=== PATIENT | female | born 1965 | race Caucasian/White ===

== ENCOUNTER → 2017-10-24 | Outpatient (CLI) | payer OTHER ==
[~2017-10-24] MED LIST: HYDR-4309 PO; IBUP800T37 PO; ONDA4TAB PO; OXYC-865 PO
--- NOTE | 2017-10-24 10:03 | RADIOLOGY IMAGING REPORT ---
FACILITY: [facility] [place] PATIENT NAME: Genevieve Burleson : 1965 MR: [id number] V: [id number] EXAM DATE: ORDERING PHYSICIAN: DEBBY COVARRUBIAS TECHNOLOGIST: Location: [facility] Patient: Genevieve Burleson : 1965 Visit/Account:[id number] Date of Sevice: 10/24/2017 Ultrasound abdomen limited: History: Right upper quadrant pain COMPARISON STUDIES: None FINDINGS: Gallbladder: Gallbladder is normal. There is no cholelithiasis or pericholecystic fluid. Gallbladde r wall thickness is normal. Positive sonographic Castillo sign is present. Liver: Liver is normal. There is no mass or intrahepatic ductal dilatation. Portal vein is patent. Surface of the liver is smooth Common duct: normal 4-5 mm. Pancreas: Normal Right kidney: 9.0 x 3.6 x 4.5 cm. Cortical thickness and echogenicity is normal. Upper abdominal aorta and IVC: Patent Ascites: none IMPRESSION: 1. No cholelithiasis. There is however a positive sonographic Castillo sign of uncertain clinical sig nificance. If there is concern for acalculous cholecystitis, HIDA scan could be considered. 2. Remainder of the examination is normal. Report Dictated By: Farhana Tillman MD at 10/24/2017 9:57 AM Report E-Signed By: Farhana Tillman MD at 10/24/2017 9:59 AM WSN:[id number]
== END ==
LOC: US 08:56
PROVIDERS: ATTEND Nurse Practitioner Family
DX: R19.8 Other specified symptoms and signs involving the digestive system and abdomen (principal)
CPT/HCPCS: 76705

== ENCOUNTER 2017-12-28 16:21 | Emergency (ER) | payer OTHER ==
[2017-12-28 16:25] VITALS: BP 139/74
--- NOTE | 2017-12-28 16:28 | ER Report ---
History and Physical Time Seen By MD: 16:28 HPI/ROS CHIEF COMPLAINT: Laceration HISTORY OF PRESENT ILLNESS: This is a 52-year-old female who presents to the emergency department for a laceration/puncture wound to the hamstring area of the left leg. Patient states that about an hour ago she slipped off the tailgate of the truck the left leg slid down the tailgate's and she snagged the hamstring area of her left thigh on the 2 pieces of the closure device on the tailgate that penetrated the skin and lacerated the back of the leg. Patient has significant pain to the left upper posterior leg into the left buttock. Bleeding is controlled. Patient also states she did hit her left shoulder she however thinks this is just a bruise and does not feel that an x-ray is warranted at this time. Patient has no other complaints, no nausea, vomiting, diarrhea, aches, chills. Patient also denies hitting her head. REVIEW OF SYSTEMS: Respiratory: No cough, no dyspnea. Cardiovascular: No chest pain, no palpitations. Gastrointestinal: No vomiting, no abdominal pain. Musculoskeletal: No back pain. Integument: As above. Allergies: Coded Allergies: No Known Drug Allergies (Unverified , 12/28/17) Home Meds Active Scripts Cephalexin 500 Mg Tab (KEFLEX 500 MG TAB) 500 Mg Tablet, 500 MG PO BID, #18 TAB 0 Refills Prov:WARD POWERS FILAMENT SHAPER- 12/28/17 Discontinued Scripts Ondansetron (ZOFRAN ODT) 4 Mg Tab.rapdis, 4 MG PO Q6H Y for NAUSEA/VOMITING, # 10 TAB.ILYA Prov:DEREJE TORRES PA-C 04/21/17 Hydrocodone Bit/Acetaminophen (NORCO 5-325 TABLET) 1 Each Tablet, 1 EACH PO Q4- 6H Y for PAIN, #10 TAB Prov:DEREJE TORRES PA-C 04/21/17 Oxycodone Hcl/Acetaminophen (PERCOCET 5-325 MG TABLET) 1 Each Tablet, 1-2 TAB PO Q4H Y for pain, #20 TAB 0 Refills Prov:NICKIE BYNUM MD 08/24/16 Ibuprofen (IBUPROFEN) 800 Mg Tablet, 1 TAB PO Q8H Y for pain, #30 TAB 0 Refills TAKE WITH FOOD EVERY 8 HOURS Prov:NICKIE BYNUM MD 08/24/16 Past Medical/Surgical History She has a past medical and cervical history of migraines, GERD, gallbladder issues, obturator tape procedure. Reviewed Nurses Notes: Yes Hx Smoking: No Smoking Status: Never Smoker Hx Substance Use Disorder: No Hx Alcohol Use: Yes Constitutional Vital Sign - Last 24 Hours 12/28/17 16:25 Temp 98.0 Pulse 70 Resp 14 B/P (MAP) 139/74 Pulse Ox 96 O2 Delivery Room Air Physical Exam General Appearance: The patient is alert, has no immediate need for airway protection and no current signs of toxicity. Eyes: Pupils equal and round no injection. Respiratory: Chest is non tender, lungs are clear to auscultation. Cardiac: regular rate and rhythm. Gastrointestinal: Abdomen is soft and non tender, no masses, bowel sounds normal. Musculoskeletal: Neck: Neck is supple and non tender. Extremities pain to left upper posterior leg, no crepitus or obvious deformity. Skin: Large laceration, abrasions and puncture wound to the left posterior leg, adipose tissue showing. Developing contusion. Bleeding controlled, no obvious FB noted. DIFFERENTIAL DIAGNOSIS: After history and physical exam differential diagnosis was considered for laceration, puncture wound and contusion. Medical Decision Making EKG/Imaging Imaging Location: [facility] Patient: Genevieve Burleson : 1965 Visit/Account:[id number] Date of Sevice: 12/28/2017 Left femur Indication: Scrape on the posterior proximal part of the left thigh after fall. Evaluate for foreign body. Comparison: None available Findings: 2 views of the left femur show no evidence of fracture, dislocation, or acute osseous abnormality of the left. No periosteal abnormality or bony lesions. There is no focal soft tissue abnormality. No evidence of radiopaque foreign body. IMPRESSION: 1. No acute osseous abnormality left femur. No radiopaque foreign body. Report Dictated By: Dimitris Puckett at 12/28/2017 5:04 PM Report E-Signed By: Dimitris Puckett at 12/28/2017 5:10 PM WSN:[id number] ED Course/Re-evaluation ED Course The patient was admitted to a room. A history and physical were obtained. Differential diagnoses were considered. An x-ray of the left upper leg was obtained no foreign body identified. The wound was irrigated and scrubbed as noted below. The wound was extensive and it was very challenging to anesthetized. the area surrounding the wound was very painful even with light pressure. Pain extending from the left posterior leg even up into the buttock, no signs of hematomas or crepitus nothing noted on the x-ray. Once anesthetized the patient tolerated procedure well. We did review the wound care information, monitor for signs of infection. Patient was also given 1 g of IM Rocephin. A prescription for Keflex was sent to the patient's pharmacy. The patient was sent home with a take-home pack of Keflex. Patient's tetanus was updated. I did offer the patient something for pain she did however refuse the pain medication at this time, stating that she will take Tylenol at home. Patient had no other questions or concerns at this time and was discharged home. He was in agreement with this plan of care. Procedure: Laceration repair. Verbal consent was obtained from the patient. The two 10cm lacerations parallel to each other x 4cm laceration on the posterior left leg was anesthetized in the usual fashion. The wound was scrubbed, draped and explored to its base with a gloved finger. There were no deep structures involved. No tendon injury was identified. The wound was repaired with 17 simple interrupted 4-0 Ethilon sutures and two 5-0 vicryl simple interrupted internal sutures. The wound repair was complex. The procedure was performed by myself. Decision to Disposition Date: Dec 28, 2017 Decision to Disposition Time: 18:29 Depart Departure Latest Vital Signs Vital Signs Date Time Temp Pulse Resp B/P (MAP) Pulse Ox O2 Delivery O2 Flow Rate FiO2 12/28/17 16:25 98.0 70 14 139/74 96 Room Air Impression: Primary Impression: Laceration of leg not thigh, left, complicated Condition: Improved Disposition: HOME OR SELF-CARE Referrals: DEBBY COVARRUBIAS (PCP) New Scripts Cephalexin 500 Mg Tab (KEFLEX 500 MG TAB) 500 Mg Tablet 500 MG PO BID, #18 TAB 0 Refills Prov: WARD POWERSP-BC 12/28/17 Departure Forms: ER Transition Record, Medications Reconciliation, Patient Portal Information Patient Instructions: Acute Wound Care (ED), Laceration (ED) Additional Instructions: Drink plenty of water. Get plenty of rest. Keep wound dry for 48 hours. Follow up with your primary care provider in the next 8-10 days to have sutures removed. Monitor for signs of infection; redness, swelling, heat, discharge, increasing pain or red streaking. Take Tylenol or Ibuprofen as needed for pain. Return to the ER with any concerns. You may change dressing as needed. Problem Qualifiers Primary Impression: Laceration of leg not thigh, left, complicated Encounter type: initial encounter Qualified Codes: S81.812A - Laceration without foreign body, left lower leg, initial encounter WARD POWERS FILAMENT SHAPER-BC Dec 28, 2017 16:28
[2017-12-28] MEDS ORDERED: DIPHTH/TETANUS/ACEL. PERTUSSIS IM ONLY ONE (16:35)
[2017-12-28] MEDS ORDERED: LIDOCAINE 1% MDV 200 MG/20 ML INJ ONE (16:45)
[2017-12-28] MEDS ORDERED: cefTRIAXone 1 GM VIAL IM ONE (16:45)
--- NOTE | 2017-12-28 17:15 | RADIOLOGY IMAGING REPORT ---
FACILITY: [facility] - [place] PATIENT NAME: Genevieve Burleson : 1965 MR: [id number] V: [id number] EXAM DATE: ORDERING PHYSICIAN: WARD POWERS TECHNOLOGIST: Location: [facility] Patient: Genevieve Burleson : 1965 Visit/Account:[id number] Date of Sevice: 12/28/2017 Left femur Indication: Scrape on the posterior proximal part of the left thigh after fall. Evaluate for foreign body. Comparison: None available Findings: 2 views of the left femur show no evidence of fracture, dislocation, or acute osseous abnormality of the left. No periosteal abnormality or bony lesions. There is no focal soft tissue abnormality. No evidence of radiopaque foreign body. IMPRESSION: 1. No acute osseous abnormality left femur. No radiopaque foreign body. Report Dictated By: Dimitris Puckett at 12/28/2017 5:04 PM Report E-Signed By: Dimitris Puckett at 12/28/2017 5:10 PM WSN:[id number]
[2017-12-28] MEDS ORDERED: CEPH500T7 PO (17:35)
[2017-12-28] MEDS ORDERED: CEPHALEXIN 500 MG CAP TH 2 CAP/BOTTLE PO ONE (17:35)
== END 2017-12-28 18:36 | disposition home or self-care (01) ==
LOC: ER 16:26
DX: S71.112A Laceration without foreign body, left thigh, initial encounter (principal)
CPT/HCPCS: 12034; 73552; 90471; 90715; 96372; 99284; J0696

== ENCOUNTER → 2018-08-19 | Outpatient (CLI) | payer OTHER ==
[~2018-08-19] MED LIST changes: +CEPH500T7 PO; -HYDR-4309 PO; +HYDR-653 PO
--- NOTE | 2018-08-20 08:34 | RADIOLOGY IMAGING REPORT ---
FACILITY: [facility] - [place] PATIENT NAME: NAM TATUM : [id number] MR: [id number] V: [id number] EXAM DATE: ORDERING PHYSICIAN: DEBBY COVARRUBIAS TECHNOLOGIST: Alison Garcia PROCEDURE:BILATERAL DIGITAL SCREENING MAMMOGRAM WITH CAD ASSISTED INTERPRETATION & 3D TOMOSYNTHESIS COMPARISON:Prior mammograms 07/18/17, 05/31/16, 04/23/14, 05/09/12. INDICATIONS:SCREENINIG FINDINGS: Mildly heterogeneous fibroglandular tissue is seen throughout the breasts. The parenchymal pattern has remained stable allowing for difference in mammographic technique & patient positioning. Biopsy clip is again seen in the 12 o'clock position of the Right breast. There is no evidence of malignant appearing mass, malignant appearing calcifications or other secondary sign of malignancy in either breast. DIAGNOSTIC CATEGORY 2--BENIGN FINDING. RECOMMENDATIONS: ROUTINE MAMMOGRAM AND CLINICAL EVALUATION. IMPRESSION: BIRADS 2: Benign finding. No significant abnormality is seen. Dictated by: Anne Peoples M.D. on 08/19/2018 at 16:05 Transcribed by: IDA on 08/19/2018 at 16:15 Approved by: Anne Peoples M.D. on 08/20/2018 at 8:32 [facility]
== END ==
LOC: MAMO 01:55
PROVIDERS: ATTEND Nurse Practitioner Family
DX: Z12.31 Encounter for screening mammogram for malignant neoplasm of breast (principal)
CPT/HCPCS: 77063; 77067